=== PATIENT | female | born 2000 | race Two or more races ===

== ENCOUNTER 2024-03-05 18:00 | Emergency (ER) | payer MEDICAID, OTHER ==
[~2024-03-05] VITALS: Ht 167.6 cm; Wt 85.4 kg
[2024-03-05] MEDS: ACETAMINOPHEN 500 MG TAB PO ONE (18:53)
[2024-03-05 18:54] VITALS: BP 109/64; PULSE 78; RESP 16; TEMP 97.6; O2SAT 98
[2024-03-05 19:27] LABS: Urine Bacteria FEW /hpf (None Seen); Urine Blood Negative /uL (Negative); Urine Budding Yeast OCCASIONAL /hpf (None Seen); Urine Clarity Turbid (Clear); Urine Color Yellow (Yellow); Urine Hyaline Cast FEW /lpf (0 - 2); Urine Mucus FEW (None Seen); Urine Protein, UAD TRACE (Negative); Urine Specific Gravity 1.027 (1.001-1.035); Urine Urobilinogen Normal (Negative); Urine WBC 10 /hpf (0 - 5)
[2024-03-05] MEDS ORDERED: NITR-87 PO (19:40)
[2024-03-05] MEDS ORDERED: ACET500T58 PO (19:40)
[2024-03-05] MEDS: NITROFURANTOIN 100 mg CAP PO ONE (19:57)
== END 2024-03-05 19:58 | disposition home or self-care (01) ==
LOC: ER 18:00
DX: O23.41 Unspecified infection of urinary tract in pregnancy, first trimester (principal); Z3A.10 10 weeks gestation of pregnancy
CPT/HCPCS: 81001

== ENCOUNTER 2024-07-15 05:55 | Emergency (ER) | payer MEDICAID ==
[~2024-07-15] VITALS: Ht 170.2 cm; Wt 93.7 kg
[~2024-07-15 05:55] MED LIST: ACET500T58 PO; NITR-87 PO
[2024-07-15] MEDS ORDERED: AMOX200S35 PO (06:44)
[2024-07-15 07:30] VITALS: BP 105/56; TEMP 97.8
[2024-07-15] MEDS: AMOXICILLIN TRIHYDRATE 250 MG CAP PO ONE (07:30)
[2024-07-15] MEDS: LIDOCAINE VISCOUS 2% 15ML UD MT ONE (07:30)
[2024-07-15 07:44] VITALS: PULSE 67; RESP 16; O2SAT 98
[2024-07-15] MEDS ORDERED: AMOX500C2 PO (07:52)
== END 2024-07-15 08:14 | disposition home or self-care (01) ==
LOC: ER 05:55
DX: O26.893 Other specified pregnancy related conditions, third trimester (principal); K02.9 Dental caries, unspecified; Z3A.29 29 weeks gestation of pregnancy; Z79.899 Other long term (current) drug therapy

== ENCOUNTER 2024-09-20 19:58 | Inpatient (IN) | payer MEDICAID ==
[~2024-09-20] VITALS: Ht 170.2 cm; Wt 102.5 kg
[~2024-09-20 19:58] MED LIST changes: +AMOX200S35 PO; +AMOX500C2 PO
[2024-09-20 21:21] LABS: Fern Testing Negative
[2024-09-20] MEDS ORDERED: LIDOCAINE 2%HCL (LOCAL ANESTH.) INJ 20ML MDV IJ PRN (21:30)
[2024-09-20] MEDS: LACTATED RINGER'S 1,000 ML IV SCH (21:30)
[2024-09-20] MEDS ORDERED: NALBUPHINE HCL 10 MG/1ml INJECTION IM PRN (21:30)
[2024-09-20] MEDS ORDERED: NALBUPHINE HCL 10 MG/1ml INJECTION IV PRN (21:30)
[2024-09-20] MEDS ORDERED: ONDANSETRON HCL 4 MG/2 ML VIAL IV PRN (21:30)
[2024-09-20] MEDS ORDERED: ePHEDrine SULFATE 50 MG/ML AMP IV ONE (22:30)
[2024-09-20] MEDS ORDERED: LACTATED RINGER'S 1,000 ML IV ONE (22:30)
[2024-09-20 22:40] LABS: Basophils # (auto) 0.1 10 ^3/uL (0-0.2); Basophils % (auto) 0.6 % (0.0-2.0); Eosinophils # (auto) 0.1 10 ^3/uL (0-0.8); Eosinophils % (auto) 0.6 % (0.0-7.0); Hemoglobin 11.7 g/dL (12.2-16.2); Lymphocytes # (auto) 2.3 10 ^3/uL (0.4-5.4); Lymphocytes % (auto) 22.1 % (10.0-50.0); Mean Corpuscular Hemoglobin 29.2 pg (28.0-32.0); Mean Corpuscular Hgb Conc. 33.3 g/dL (32.0-36.0); Mean Corpuscular Volume 87.7 fL (80.0-100.0); Monocytes # (auto) 0.8 10 ^3/uL (0-1.3); Monocytes % (auto) 8.1 % (0.0-12.0); Neutrophils # (auto) 7.1 10 ^3/uL (1.6-8.6); Neutrophils % (auto) 68.6 % (37.0-80.0); Nucleated Red Blood Cells % 0.1 %; Platelet Count (auto) 199 10^3/uL (140-450); Red Cell Distribution Width 14.2 % (11.8-14.3); White Blood Cell 10.3 10^3/uL (4.4-10.8)
[2024-09-20 22:43] LABS: Urine Bacteria FEW /hpf (None Seen); Urine Blood Negative /uL (Negative); Urine Clarity Clear (Clear); Urine Color Light-Yellow (Yellow); Urine Protein, UAD 1+ (Negative); Urine Specific Gravity 1.019 (1.001-1.035); Urine Squamous Epithelial Cell FEW /hpf (<5); Urine Urobilinogen Normal (Negative); Urine WBC 5 /hpf (0 - 5)
[2024-09-20] MEDS ORDERED: LACT. RINGERS/OXYTOCIN 20UNITS 1,000 ML IV SCH (22:45)
[2024-09-20] MEDS ORDERED: TERBUTALINE SULFATE 1 MG/ML 1ML VIAL SC PRN (22:45)
[2024-09-20 22:54] LABS: Amphetamine Screen, Urine Neg (NEGATIVE); Benzodiazephine Screen, Urine Neg (NEGATIVE)
[2024-09-20 22:55] LABS: INR 0.93 (0.9-1.15); Partial Thromboplastin Time 24.1 SEC (24.5-34.5); Prothrombin Time 9.9 sec (9.3-11.8)
[2024-09-20 22:58] LABS: Barbiturate Scree,Urine Neg (NEGATIVE); Cannabinoid Screen, Urine Neg (NEGATIVE); Cocaine Screen, Urine Neg (NEGATIVE); Opiate Scree,Urine Neg (NEGATIVE); Phencyclidine Screen, Urine Neg (NEGATIVE)
[2024-09-20 22:58] LABS: Alanine Aminotransferase 16 U/L (7-40); Albumin 3.7 g/dL (3.2-4.8); Alkaline Phosphatase 117 U/L (46-116); Anion Gap 8 (5-15); Aspartate Aminotransferase 17 U/L (13-40); BUN/Creatinine Ratio 14.1 (10.0-20.0); Bilirubin, Total 0.3 mg/dL (0.2-1.0); Blood Urea Nitrogen 11 mg/dL (9-23); Calcium 9.3 mg/dL (8.7-10.4); Carbon Dioxide 22 mmol/L (20-31); Chloride 107 mmol/L (98-107); Glucose 81 mg/dL (74-106); Potassium 3.8 mmol/L (3.5-5.1); Sodium 137 mmol/L (136-145); Total Protein 6.3 g/dL (5.7-8.2)
--- NOTE | 2024-09-20 23:36 | DVHHP2 ---
OB CC & HPI Date Date of Admission: Sep 20, 2024 Patient Identification: : 1 Para: 0 EDC: Sep 25, 2024 EGA: 39w 2d Chief Complaints: Reason for admission: rupture of membranes Other reason for admission: Early Labor Admission Nurse Assessment Rev: Yes History of Present Complaints 23yo G1, 0000 with EDC of 09/25/24 EGA 39w [address]d [address] with report of SROM at 8pm. Contractions started very soon afterwards. She reports normal movements, no PALACIOS, vision changes or epigastric pain. Past Medical History Cardiac: No pertinent Hx Pulmonary: Asthma (has not had any episode for more than one year) Central Nervous System: No pertinent Hx GI: No pertinent Hx Hemotology/Oncology: No pertinent Hx Hepatobiliary: No pertinent Hx Psychiatric: No pertinent Hx Musculoskeletal: No pertinent Hx Rheumotologic: No pertinent Hx Infectious Disease: No peritnent Hx ENT: No pertinent Hx Renal/: UTI Endocrine: No pertinent Hx Dermatology: No pertinent Hx Past Surgical History: No pertinent Hx OB History OB History Care: Good Care Ultrasounds: Normal mid trimester US Obstetrical Complications: None Medical Complications: Genitourinary (UTI once during ) Other Concerns: none Allergies: Coded Allergies: NO KNOWN ALLERGIES (Unverified , 03/05/24) Home Meds Active Scripts Amoxicillin Trihydrate (Amoxicillin) 500 Mg Cap, 1 CAP PO BID for 5 Days, #10 CAP Prov:ANGEL LUIS CONNER MD 07/15/24 Amoxicillin (Amoxicillin) 200 Mg/5 Ml Bij[place], 500 MG PO BID for 7 Days, ML Prov:ANGEL LUIS CONNER MD 07/15/24 Acetaminophen (Acetaminophen) 500 Mg Tab, 500 MG PO Q4HP PRN, #30 TAB Prov:FER HERNANDEZ PAC 03/05/24 Nitrofurantoin Monohydrate Mac (Macrobid) 100 Mg Cap, 100 MG PO BID for 5 Days, #10 CAP Prov:FER HERNANDEZ PAC 03/05/24 Current Medications Current Medications Medications (Trade) Dose Ordered Sig/Ricky Route PRN Reason Start Time Stop Time Status Last Admin Lactated Ringer's 1,000 ml @ 125 mls/hr Q8H IV 09/20/24 21:30 09/20/24 21:30 Nalbuphine HCl (Nubain) 10 mg Q4HP PRN IM MODERATE PAIN (4-6 PAIN SCALE) 09/20/24 21:30 Nalbuphine HCl (Nubain) 10 mg Q4HP PRN IV MODERATE PAIN (4-6 PAIN SCALE) 09/20/24 21:30 Witch Connie (Tucks) 1 pad PRN PRN TOP PERINEAL AREA DISCOMFORT 09/20/24 21:30 Sodium Lauryl Sulfate (Phisoderm) 240 ml PRN PRN TOP PERINEAL AREA DISCOMFORT 09/20/24 21:30 Benzocaine (Dermoplast) 1 applic PRN PRN TOP PERINEAL AREA DISCOMFORT 09/20/24 21:30 Lidocaine HCl (Xylocaine) 20 ml ONCE PRN IJ PERINEAL AREA DISCOMFORT 09/20/24 21:30 Ondansetron HCl (Zofran) 4 mg Q4HPRN PRN IV NAUSEA / VOMITING 09/20/24 21:30 Oxytocin 1,000 ml @ 6 ml/hr Q24H IV 09/20/24 22:45 Terbutaline Sulfate (Brethine Inj) 0.25 mg ONCE PRN SC Uterine tachysystole 09/20/24 22:45 Family & Social History Family/Social History Past Family/Social History: None pertinent Rubella: immune RPR/VDRL: Negative GBS Status: Negative HBsAG: Negative Review of Systems Constitutional: No symptom reported Ears, Nose, & Throat: No symptom reported Eyes: No symptom reported Pulmonary/Respiratory: No symptom reported Cardiovascular: No symptom reported Gastrointestinal: No symptom reported Genitourinary: No symptom reported Musculoskeletal: No symptom reported Skin: No symptom reported Psychiatric: No symptom reported Endocrine: No symptom reported Hemotologic/Lymphatic: No symptom reported OB Admission Exam Physical Exam HEENT: Nasal Mucosa Normal, Eyes non-injected, Moist Membranes Heart: Rhythm Normal Lungs: Clear Abdomen: Gravid (non-tender) Extremities: Normal Reflexes: Normal Cervical Dilatation: 3cm Effacement: 50% Station: -2 Membranes: Ruptured Amniotic Fluid: Clear Heart Rate: 130's Accelerations: Accelerations Present Decelerations: No Decelerations Slip Cover Sewer Variability: Average (6-25) Contractions on Admission: 6-10 Minutes Apart Date/Time Contractions Began: 09/20/24 / 20:00 Frequency of Contractions: every 5min Duration: 60secs Intensity: Moderate OB Plan Plan Admitting Diagnosis: IUP @ weeks SROM labor Category 1 FHR tracing Plan: Expectant Management, Other (May augument if indicated) Other Plan: Plan of care discussed with Patient and partner / family Process, Risks, benefits, of available management options discussed, including starting with expectant management, augmentation if indicated, Internal monitoring of UCs & FHT, amnioinfusion etc only when indicated Risk of pain, bleeding, infection, discussed with the patient and partner Consent for possible blood transfusion obtained. All questions answered. Patient agrees to starting with expectant management at this time; other interventions as indicated Informed Consents obtained Admit to Place labor Routine L&D admission orders EFM per policy & protocol Intrauterine resuscitation PRN Labor analgesia PRN Encourage frequent position change to facilitate labor & descent Supportive Care Anticipate Will consult with MELANIE Peraza CNM Sep 20, 2024 23:36
[2024-09-20] MEDS: ROPIVACAINE HCL 200 ML ONE (23:38)
[2024-09-21] MEDS ORDERED: LACT. RINGERS/OXYTOCIN 20UNITS 1,000 ML IV SCH (00:15)
[2024-09-21] MEDS ORDERED: TERBUTALINE SULFATE 1 MG/ML 1ML VIAL SC PRN (00:15)
[2024-09-21] MEDS: DERMOPLAST 60ML BOTTLE TOP PRN (00:16)
[2024-09-21] MEDS: WITCH HAZEL-GLYCERIN PAD TOP PRN (00:16)
[2024-09-21] MEDS: PHISODERM TOP SOLN 240ML BTL TOP PRN (00:16)
[2024-09-21] MEDS: LACT. RINGERS/OXYTOCIN 20UNITS 500 ML IV ONE ×2 (05:10→05:11)
--- NOTE | 2024-09-21 08:30 | LDN2 ---
Labor and Delivery Note Date 09/21/24 Age 23 1 Para 0 AB 0 EDC 09/25/2024 EGA 39w 3d Diagnosis IUP at 39w 3d SROM Labor Vaginal Delivery: VTX (DENISE) Vacuum Assisted: No Placenta: Spontaneous Sex: Female Weight 2845g (6Lbs 4oz) Apgars 9 at one and five minutes of life Nuchal Cord Transected: No Amniotic Fluid: Clear Anesthesia Labor Epidural Episiotomy: No Extension: No (Abrassio above the urethra opening and in periurethral region, not bleeding) EBL 100mL Labs Blood Bank 09/20/24 22:17: Blood Type AB NEGATIVE Complications none Conditions Mother and baby stable Coating Operator Alicia Comments/Significant Med Yuliana At 04:30, 23yo, now delivered a viable Female infant by w/ score 9 at one & five minutes of life. DENISE position Infant placed skin to skin on pt's chest. Cord clamped and cut after pulsation ceased. Cord blood sent. Intact 3-vessel cord placenta delivered spontaneously, Marcell. Pitocin IV bolus started. Placenta sent to pathology. Patient had labor epidural anesthesia. Bruising noted above and beside the urethral orifice; same do not require suturing. Cervix/vagina inspected via SSE. Cervix intact. Fundus at U, firm, midline, and light lochia. QBL 100ml. VSS. Count correct x2. Patient to care and baby to couplet care, both stable. MELANIE VIEIRA CNM Sep 21, 2024 08:30
[2024-09-21] MEDS: ACETAMINOPHEN 325 MG TAB PO PRN (11:29)
[2024-09-21] MEDS ORDERED: IBUPROFEN 600 MG TAB PO PRN (13:30)
--- NOTE | 2024-09-21 14:56 | DVHPN2 ---
ELIANE Labor Progress Note Date and Time Seen Date Seen: Sep 21, 2024 Time Seen: 02:00 Subjective Patient reports: No new complaints Monitoring Method Monitoring Method: External Heart Rate Heart Rate Baseline: 130 Heart Rate Variability: Moderate Presence of FHR Accelerations: Yes Presence of FHR Decelerations: Yes Heart Rate Type of Decel: Variable Decelerations Changes in Trends of Patterns: No Are all 5 Components of the FH: Yes Contractions Contractions Frequency: Other (q2-3min) Duration of Contraction: 75 Contractions Intensity: Moderate Contractions Resting Tone: Relaxed Membranes Membranes: Ruptured Amniotic Fluid Color: Clear Vaginal Exam Vag Exam Deferred: No Vaginal Exam Dilation: 9 Vaginal Exam Effacement: 90 Vaginal Exam Station: -1 (VE by RN) Vaginal Exam Presentation: VTX Vaginal Exam Show: Small Medications Medications - Pitocin: No Medication - Epidural: Yes Lab Results Lab Results Current Medications Medications (Trade) Dose Ordered Sig/Ricky Start Time Stop Time Status Last Admin Dose Admin Lactated Ringer's 1,000 ml @ 125 mls/hr Q8H 09/20/24 21:30 09/20/24 21:30 125 MLS/HR Nalbuphine HCl (Nubain) 10 mg Q4HP PRN 09/20/24 21:30 09/21/24 11:36 DC Nalbuphine HCl (Nubain) 10 mg Q4HP PRN 09/20/24 21:30 09/21/24 11:36 DC Sally Rosales (Tucks) 1 pad PRN PRN 09/20/24 21:30 09/21/24 00:16 1 PAD Sodium Lauryl Sulfate (Phisoderm) 240 ml PRN PRN 09/20/24 21:30 09/21/24 00:16 240 ML Benzocaine (Dermoplast) 1 applic PRN PRN 09/20/24 21:30 09/21/24 00:16 1 APPLIC Lidocaine HCl (Xylocaine) 20 ml ONCE PRN 09/20/24 21:30 09/21/24 11:36 DC Ondansetron HCl (Zofran) 4 mg Q4HPRN PRN 09/20/24 21:30 09/21/24 11:36 DC Ephedrine Sulfate (ePHEDrine SULFATE) 10 mg PRN ONCE 09/20/24 22:30 09/21/24 11:36 DC Lactated Ringer's 1,000 ml @ 1,000 mls/hr Q1H ONCE 09/20/24 22:30 09/20/24 23:29 DC Oxytocin 1,000 ml @ 6 ml/hr Q24H 09/20/24 22:45 09/21/24 11:36 DC Terbutaline Sulfate (Brethine Inj) 0.25 mg ONCE PRN 09/20/24 22:45 09/21/24 11:36 DC Oxytocin 1,000 ml @ 6 ml/hr Q24H 09/21/24 00:15 09/21/24 11:36 DC Terbutaline Sulfate (Brethine Inj) 0.25 mg ONCE PRN 09/21/24 00:15 09/21/24 11:36 DC Oxytocin 500 ml @ 999 mls/hr Q31M ONCE 09/21/24 00:15 09/21/24 00:45 DC 09/21/24 05:10 999 MLS/HR Oxytocin 500 ml @ 125 mls/hr Q4H ONCE 09/21/24 00:45 09/21/24 04:44 DC 09/21/24 05:11 125 MLS/HR Acetaminophen (Tylenol Tablet) 650 mg Q4HP PRN 09/21/24 08:15 09/21/24 11:29 650 MG Docusate Sodium (Colace Capsule) 200 mg HS 09/21/24 22:00 Ibuprofen (Motrin Tablet) 600 mg Q6HP PRN 09/21/24 13:30 Laboratory Tests Test 09/20/24 22:17 09/20/24 21:16 09/20/24 20:30 Range/Units White Blood Count 10.3 4.4-10.8 10^3/uL Red Blood Count 4.00 4.0-5.20 10^6/uL Hemoglobin 11.7 L 12.2-16.2 g/dL Hematocrit 35.0 L 36.0-46.0 % Mean Corpuscular Volume 87.7 80.0-100.0 fL Mean Corpuscular Hemoglobin 29.2 28.0-32.0 pg Mean Corpuscular Hemoglobin Concent 33.3 32.0-36.0 g/dL Red Cell Distribution Width 14.2 11.8-14.3 % Platelet Count 199 140-450 10^3/uL Mean Platelet Volume 9.9 6.9-10.8 fL Neutrophils (%) (Auto) 68.6 37.0-80.0 % Lymphocytes (%) (Auto) 22.1 10.0-50.0 % Monocytes (%) (Auto) 8.1 0.0-12.0 % Eosinophils (%) (Auto) 0.6 0.0-7.0 % Basophils (%) (Auto) 0.6 0.0-2.0 % Neutrophils # (Auto) 7.1 1.6-8.6 10 ^3/uL Lymphocytes # (Auto) 2.3 0.4-5.4 10 ^3/uL Monocytes # (Auto) 0.8 0-1.3 10 ^3/uL Eosinophils # (Auto) 0.1 0-0.8 10 ^3/uL Basophils # (Auto) 0.1 0-0.2 10 ^3/uL Nucleated Red Blood Cells 0.1 % Prothrombin Time 9.9 9.3-11.8 sec Prothrombin Time INR 0.93 0.9-1.15 Activated Partial Thromboplast Time 24.1 L 24.5-34.5 SEC Sodium Level 137 136-145 mmol/L Potassium Level 3.8 3.5-5.1 mmol/L Chloride Level 107 98-107 mmol/L Carbon Dioxide Level 22 20-31 mmol/L Anion Gap 8 5-15 Blood Urea Nitrogen 11 9-23 mg/dL Creatinine 0.78 0.550-1.02 mg/dL Glomerular Filtration Rate Calc 109 >90 mL/min BUN/Creatinine Ratio 14.1 10.0-20.0 Serum Glucose 81 74-106 mg/dL Calcium Level 9.3 8.7-10.4 mg/dL Total Bilirubin 0.3 0.2-1.0 mg/dL Aspartate Amino Transferase (AST) 17 13-40 U/L Alanine Aminotransferase (ALT) 16 7-40 U/L Alkaline Phosphatase 117 H 46-116 U/L Total Protein 6.3 5.7-8.2 g/dL Albumin 3.7 3.2-4.8 g/dL Rapid Plasma Reagin Pending Treponema pallidum Ab (TP-PA) Pending Hepatitis C Antibody Negative Negative Urine Color Light-yellow Yellow Urine Clarity Clear Clear Urine pH 8.0 5.0-9.0 Urine Specific [place] 1.019 1.001-1.035 Urine Protein 1+ H Negative Urine Ketones Negative Negative Urine Blood Negative Negative /uL Urine Nitrite Negative Negative Urine Bilirubin Negative Negative Urine Urobilinogen Normal Negative mg/dL Urine Leukocyte Esterase Trace Negative /uL Urine RBC 5 0 - 4 /hpf Urine WBC 5 0 - 5 /hpf Urine Squamous Epithelial Cells Few <5 /hpf Urine Bacteria Few H None Seen /hpf Urine Glucose Normal Normal mg/dL Urine Opiates Screen Neg NEGATIVE Urine Fentanyl Screen Neg NEGATIVE Urine Barbiturates Screen Neg NEGATIVE Urine Phencyclidine Screen Neg NEGATIVE Urine Amphetamines Screen Neg NEGATIVE Urine Benzodiazepines Screen Neg NEGATIVE Urine Cocaine Screen Neg NEGATIVE Urine Cannabinoids Screen Neg NEGATIVE Amniotic Fluid Ferning Test Negative Placental [id number] Positive Assessment Assessment IUP at 39w 3d SROM Active labor Category II FHR tracing Plan Plan Expectant management Continuous EFM Intrauterine resuscitation PRN Frequent position change to facilitate descent Supportive care Anticipate Plan discussed with: Patient, Spouse, Other (Patient's sister) MELANIE VIEIRA CNM Sep 21, 2024 14:56
--- NOTE | 2024-09-21 15:03 | DVHPN2 ---
CNM Labor Progress Note Date and Time Seen Date Seen: Sep 21, 2024 Time Seen: 03:50 Subjective Patient reports: No new complaints Monitoring Method Monitoring Method: External Heart Rate Heart Rate Baseline: 125 Heart Rate Variability: Moderate Presence of FHR Accelerations: Yes Presence of FHR Decelerations: No Changes in Trends of Patterns: No Are all 5 Components of the FH: Yes Contractions Contractions Frequency: Other (q 2-3min) Contractions Intensity: Moderate Contractions Resting Tone: Relaxed Membranes Membranes: Ruptured Amniotic Fluid Color: Clear Vaginal Exam Vag Exam Deferred: No Vaginal Exam Dilation: 10 Vaginal Exam Effacement: 100 Vaginal Exam Station: 0 Vaginal Exam Show: Moderate Medications Medications - Pitocin: No Medication - Epidural: Yes Lab Results Lab Results Current Medications Medications (Trade) Dose Ordered Sig/Ricky Start Time Stop Time Status Last Admin Dose Admin Lactated Ringer's 1,000 ml @ 125 mls/hr Q8H 09/20/24 21:30 09/20/24 21:30 125 MLS/HR Nalbuphine HCl (Nubain) 10 mg Q4HP PRN 09/20/24 21:30 09/21/24 11:36 DC Nalbuphine HCl (Nubain) 10 mg Q4HP PRN 09/20/24 21:30 09/21/24 11:36 DC aSlly Connie (Tucks) 1 pad PRN PRN 09/20/24 21:30 09/21/24 00:16 1 PAD Sodium Lauryl Sulfate (Phisoderm) 240 ml PRN PRN 09/20/24 21:30 09/21/24 00:16 240 ML Benzocaine (Dermoplast) 1 applic PRN PRN 09/20/24 21:30 09/21/24 00:16 1 APPLIC Lidocaine HCl (Xylocaine) 20 ml ONCE PRN 09/20/24 21:30 09/21/24 11:36 DC Ondansetron HCl (Zofran) 4 mg Q4HPRN PRN 09/20/24 21:30 09/21/24 11:36 DC Ephedrine Sulfate (ePHEDrine SULFATE) 10 mg PRN ONCE 09/20/24 22:30 09/21/24 11:36 DC Lactated Ringer's 1,000 ml @ 1,000 mls/hr Q1H ONCE 09/20/24 22:30 09/20/24 23:29 DC Oxytocin 1,000 ml @ 6 ml/hr Q24H 09/20/24 22:45 09/21/24 11:36 DC Terbutaline Sulfate (Brethine Inj) 0.25 mg ONCE PRN 09/20/24 22:45 09/21/24 11:36 DC Oxytocin 1,000 ml @ 6 ml/hr Q24H 09/21/24 00:15 09/21/24 11:36 DC Terbutaline Sulfate (Brethine Inj) 0.25 mg ONCE PRN 09/21/24 00:15 09/21/24 11:36 DC Oxytocin 500 ml @ 999 mls/hr Q31M ONCE 09/21/24 00:15 09/21/24 00:45 DC 09/21/24 05:10 999 MLS/HR Oxytocin 500 ml @ 125 mls/hr Q4H ONCE 09/21/24 00:45 09/21/24 04:44 DC 09/21/24 05:11 125 MLS/HR Acetaminophen (Tylenol Tablet) 650 mg Q4HP PRN 09/21/24 08:15 09/21/24 11:29 650 MG Docusate Sodium (Colace Capsule) 200 mg HS 09/21/24 22:00 Ibuprofen (Motrin Tablet) 600 mg Q6HP PRN 09/21/24 13:30 Laboratory Tests Test 09/20/24 22:17 09/20/24 21:16 09/20/24 20:30 Range/Units White Blood Count 10.3 4.4-10.8 10^3/uL Red Blood Count 4.00 4.0-5.20 10^6/uL Hemoglobin 11.7 L 12.2-16.2 g/dL Hematocrit 35.0 L 36.0-46.0 % Mean Corpuscular Volume 87.7 80.0-100.0 fL Mean Corpuscular Hemoglobin 29.2 28.0-32.0 pg Mean Corpuscular Hemoglobin Concent 33.3 32.0-36.0 g/dL Red Cell Distribution Width 14.2 11.8-14.3 % Platelet Count 199 140-450 10^3/uL Mean Platelet Volume 9.9 6.9-10.8 fL Neutrophils (%) (Auto) 68.6 37.0-80.0 % Lymphocytes (%) (Auto) 22.1 10.0-50.0 % Monocytes (%) (Auto) 8.1 0.0-12.0 % Eosinophils (%) (Auto) 0.6 0.0-7.0 % Basophils (%) (Auto) 0.6 0.0-2.0 % Neutrophils # (Auto) 7.1 1.6-8.6 10 ^3/uL Lymphocytes # (Auto) 2.3 0.4-5.4 10 ^3/uL Monocytes # (Auto) 0.8 0-1.3 10 ^3/uL Eosinophils # (Auto) 0.1 0-0.8 10 ^3/uL Basophils # (Auto) 0.1 0-0.2 10 ^3/uL Nucleated Red Blood Cells 0.1 % Prothrombin Time 9.9 9.3-11.8 sec Prothrombin Time INR 0.93 0.9-1.15 Activated Partial Thromboplast Time 24.1 L 24.5-34.5 SEC Sodium Level 137 136-145 mmol/L Potassium Level 3.8 3.5-5.1 mmol/L Chloride Level 107 98-107 mmol/L Carbon Dioxide Level 22 20-31 mmol/L Anion Gap 8 5-15 Blood Urea Nitrogen 11 9-23 mg/dL Creatinine 0.78 0.550-1.02 mg/dL Glomerular Filtration Rate Calc 109 >90 mL/min BUN/Creatinine Ratio 14.1 10.0-20.0 Serum Glucose 81 74-106 mg/dL Calcium Level 9.3 8.7-10.4 mg/dL Total Bilirubin 0.3 0.2-1.0 mg/dL Aspartate Amino Transferase (AST) 17 13-40 U/L Alanine Aminotransferase (ALT) 16 7-40 U/L Alkaline Phosphatase 117 H 46-116 U/L Total Protein 6.3 5.7-8.2 g/dL Albumin 3.7 3.2-4.8 g/dL Rapid Plasma Reagin Pending Treponema pallidum Ab (TP-PA) Pending Hepatitis C Antibody Negative Negative Urine Color Light-yellow Yellow Urine Clarity Clear Clear Urine pH 8.0 5.0-9.0 Urine Specific [place] 1.019 1.001-1.035 Urine Protein 1+ H Negative Urine Ketones Negative Negative Urine Blood Negative Negative /uL Urine Nitrite Negative Negative Urine Bilirubin Negative Negative Urine Urobilinogen Normal Negative mg/dL Urine Leukocyte Esterase Trace Negative /uL Urine RBC 5 0 - 4 /hpf Urine WBC 5 0 - 5 /hpf Urine Squamous Epithelial Cells Few <5 /hpf Urine Bacteria Few H None Seen /hpf Urine Glucose Normal Normal mg/dL Urine Opiates Screen Neg NEGATIVE Urine Fentanyl Screen Neg NEGATIVE Urine Barbiturates Screen Neg NEGATIVE Urine Phencyclidine Screen Neg NEGATIVE Urine Amphetamines Screen Neg NEGATIVE Urine Benzodiazepines Screen Neg NEGATIVE Urine Cocaine Screen Neg NEGATIVE Urine Cannabinoids Screen Neg NEGATIVE Amniotic Fluid Ferning Test Negative Placental [place]-0-Bhhzzotszszlj Positive Assessment Assessment IUP at 39w 3d SROM 2nd stage of labor Category I FHR tracing Plan Plan Expectant management Continuous EFM Intrauterine resuscitation PRN Labor down: position change to facilitate descent Supportive care Anticipate Plan discussed with: Patient, Spouse, Other (Patient's sister) MELANIE VIEIRA CNM Sep 21, 2024 15:03
[2024-09-21 15:12] VITALS: BP 119/62; PULSE 66; RESP 17; TEMP 98.1; O2SAT 98
[2024-09-21 19:00] VITALS: BP 124/66; PULSE 79; RESP 16; TEMP 98.2; O2SAT 98
[2024-09-21] MEDS: DOCUSATE SOD 100 MG CAP PO SCH (22:00)
[2024-09-21 23:00] VITALS: BP 125/80; PULSE 100; RESP 16; TEMP 98.7; O2SAT 96
[2024-09-22 03:00] VITALS: BP 112/58; PULSE 87; RESP 16; TEMP 98.5; O2SAT 98
--- NOTE | 2024-09-22 03:56 | DVHPN2 ---
Progress Note Date Seen: Sep 22, 2024 Subjective S: Lochia minimal, Tolerating regular diet well. Ambulating and voiding well w/o feeling lightheaded or dizzy. Passing flatus but no BM yet. Breast feeding. Contraceptive plan: IUD Desires and requests to be discharged home today vital signs Vital Sign Date Time Temp Pulse Resp B/P (MAP) Pulse Ox O2 Delivery O2 Flow Rate FiO2 09/22/24 03:00 98.5 87 16 112/58 (76) 98 98.5 09/21/24 19:00 Room Air Total Intake and Output 09/21/24 09/21/24 09/22/24 15:00 23:00 07:00 Intake Total 2 ml Output Total 1300 ml Balance -1300 ml 2 ml medications Current Medications Medications Dose Ordered Sig/Ricky Route Start Time Stop Time Status Last Admin Dose Admin Lactated Ringer's 1,000 ml @ 125 mls/hr Q8H IV 09/20/24 21:30 09/20/24 21:30 125 MLS/HR Witch Connie 1 pad PRN PRN TOP 09/20/24 21:30 09/21/24 00:16 1 PAD Sodium Lauryl Sulfate 240 ml PRN PRN TOP 09/20/24 21:30 09/21/24 00:16 240 ML Benzocaine 1 applic PRN PRN TOP 09/20/24 21:30 09/21/24 00:16 1 APPLIC Acetaminophen 650 mg Q4HP PRN PO 09/21/24 08:15 09/21/24 11:29 650 MG Docusate Sodium 200 mg HS PO 09/21/24 22:00 Ibuprofen 600 mg Q6HP PRN PO 09/21/24 13:30 laboratory and microbiology Laboratory Tests 09/20/24 22:17 Test 09/20/24 22:17 Range/Units Serum Glucose 81 74-106 mg/dL Objective O: A&O x3 NAD. Afebrile, VSS Chest: heart and lung sounds normal. Breasts: Nipples intact w/o cracks or soreness Abdomen: normal BS, soft, non-tender, no rebound or guarding, fundus firm @ U- 1, Perineum:- no edema, or erythema, Extremities: no edema or tenderness Lochia - minimal Assessment/Plan 23yo now ppd#1_ s/p doing well. Blood Type:AB Rh: Negative RhoGAM given Breast feeding and Formula feeding Rubella: Immune Pain control with oral medications Bowel regimen: Increase fluid intake and fiber in diet, Laxative PRN Discharge plan: May discharge home later today if condition remains stable Plan discussed with: Patient MELANIE VIEIRA CNM Sep 22, 2024 03:56
--- NOTE | 2024-09-22 04:00 | DVHDS2 ---
Obstetrics Discharge Summary Obstetrics Discharge Summary Date of Admission: Sep 20, 2024 Date of Discharge: Sep 22, 2024 Reason For Admission: Onset of Labor, PROM Procedures: None Intrapartum Procedures: Spontaneous vaginal deliv Procedures: RHo (D) Ig, Hct/date: (35% on 09/20/24), Hgb/date: (11.7g/dL on 09/20/24) Operative Complicat: None Discharge Diagnosis: Term -Delivered Discharge Information: Activity (Unrestricted. Advance as tolerated. No heavy lifting, pushing or straining. Pelvic rest x 6weeks), Diet (Routine regular diet rich in fiber, protein, iron and vitamin C with adequate fluid intake.), Medications (Ibuprofen 600mg every 6 hours as needed for pain. Continue Vitamin and iron), Instructions ( self care instructions given. emergency signs and symptoms including pre-eclampsia precautions and signs of PPD reviewed with patient. Follow up with OB Provider in 1 week), Discharge to (Home) MELANIE VIEIRA CNM Sep 22, 2024 04:00
[2024-09-22 07:00] VITALS: BP 103/62; PULSE 96; RESP 18; TEMP 98; O2SAT 95; O2SAT 98
[2024-09-22 11:06] LABS: RPR Non Reactive (Non Reactive)
== END 2024-09-22 11:23 | disposition home or self-care (01) | DRG 560 ==
LOC: LDRP 19:58 → OBSVTOIN 21:16 → LDRP 21:31
PROVIDERS: ADMIT Obstetrics & Gynecology; ATTEND Obstetrics & Gynecology
PROC: 10E0XZZ Delivery of Products of Conception, External Approach (ICD-10-PCS; principal; 2024-09-21)
PROC: 3E0R3BZ Introduction of Anesthetic Agent into Spinal Canal, Percutaneous Approach (ICD-10-PCS; 2024-09-21)
PROC: 00HU33Z Insertion of Infusion Device into Spinal Canal, Percutaneous Approach (ICD-10-PCS; 2024-09-21)
PROC: 3E0234Z Introduction of Serum, Toxoid and Vaccine into Muscle, Percutaneous Approach (ICD-10-PCS; 2024-09-21)
DX: O99.52 Diseases of the respiratory system complicating childbirth (principal); Z37.0 Single live birth; J45.909 Unspecified asthma, uncomplicated; Z3A.39 39 weeks gestation of pregnancy
CPT/HCPCS: 36415; 59025; 59409; 62282; 80053; 80307; 81001; 81002; 84112; 85025; 85610; 85730; 86592; 86780; 86803; 86850; 86870; 86900; 86901; 90384; 94760; 96360; 96361; G0378; J2590